=== PATIENT | male | born 1965 | race African-American/Black ===

== ENCOUNTER 2017-09-23 03:16 | Emergency (ER) | payer MEDICARE, MEDICAID ==
[~2017-09-23] VITALS: Ht 180.3 cm; Wt 88.4 kg
[~2017-09-23 03:16] MED LIST: ATOR40TA70 PO; CYAN10009 PO; FOLI-43 PO; LEVO75TA7 PO; LISI-186 PO
[2017-09-23 05:23] LABS: BASOPHILS % 0.5 % (0.0-2.0); EOSINOPHILS % 0.7 % (0.0-5.0); HEMATOCRIT. 41.8 % (42.0-52.0); HEMOGLOBIN. 14.3 g/dL (14.0-18.0); LYMPHOCYTES % 36.8 % (20.0-50.0); MEAN CORPUSCULAR HEMOGLOBIN 32.4 pg (28.0-32.0); MEAN CORPUSCULAR VOLUME 94.5 fL (80.0-94.0); MEAN PLATELET VOLUME 7.7 fl (7.4-10.4); MONOCYTES % 5.8 % (2.0-8.0); NEUTROPHILS % 56.2 % (40.0-76.0); PLATELET 249 x1000/uL (130-400); RED BLOOD CELL COUNT 4.42 mill/uL (4.7-6.1); RED CELL DISTRIBUTION WIDTH 13.9 % (11.6-14.6)
[2017-09-23 05:31] LABS: PROTHROMBIN TIME 10.4 sec (9.4-11.6)
[2017-09-23 05:35] LABS: CHLORIDE 103 mEq/L (98-107)
[2017-09-23 05:39] LABS: ETHANOL BLOOD < 10 mg/dL
[2017-09-23] MEDS ORDERED: LORAZEPAM 1MG TABLET PO ONE (07:00)
[2017-09-23 09:10] VITALS: BP 113/69
== END 2017-09-23 09:14 | disposition home or self-care (01) ==
LOC: ER 05:55
DX: G40.909 Epilepsy, unspecified, not intractable, without status epilepticus (principal); Z88.9 Allergy status to unspecified drugs, medicaments and biological substances; Z79.899 Other long term (current) drug therapy
CPT/HCPCS: 36415; 80053; 80156; 85025; 85610; 99284; G0482

== ENCOUNTER → 2017-11-25 | Outpatient (CLI) | payer MEDICARE, MEDICAID | END | disposition home or self-care (01) | LOC: CARD 10:55 | PROVIDERS: ATTEND Psychiatry & Neurology Neurology | DX: G40.919 Epilepsy, unspecified, intractable, without status epilepticus (principal); Z79.899 Other long term (current) drug therapy ==